=== PATIENT | male | born 1990 | race Caucasian/White ===

== ENCOUNTER 2016-07-12 00:13 | Emergency (ER) | payer OTHER ==
[~2016-07-12] VITALS: Ht 167.6 cm; Wt 72.0 kg
[~2016-07-12 00:13] MED LIST: ALBU6.7H IH; CLIN-77 PO; DIPH25 PO; HYDR-3965 PO; MO4B PO; PRED20 PO; RANI150T7 PO
[2016-07-12] MEDS ORDERED: BACITRACIN 0.9 GM PACKET OINTMENT TP ONE (01:15)
[2016-07-12] MEDS ORDERED: LIDOCAINE HCL BUFFERED 1% 20 ML VIAL INJ ONE (01:15)
[2016-07-12 01:52] VITALS: BP 131/77
== END 2016-07-12 01:53 | disposition home or self-care (01) ==
LOC: EMS 00:13
DX: S61.011A Laceration without foreign body of right thumb without damage to nail, initial encounter (principal); J45.909 Unspecified asthma, uncomplicated; W45.8XXA Other foreign body or object entering through skin, initial encounter; Y93.89 Activity, other specified; Y92.89 Other specified places as the place of occurrence of the external cause; Y99.8 Other external cause status
CPT/HCPCS: 12001; 99283; J3490

== ENCOUNTER 2016-12-27 21:45 | Emergency (ER) | payer OTHER ==
[~2016-12-27] VITALS: Ht 162.6 cm; Wt 74.5 kg
[2016-12-27 22:54] VITALS: BP 128/70
== END 2016-12-27 23:02 | disposition home or self-care (01) ==
LOC: EMS 21:46
DX: K52.9 Noninfective gastroenteritis and colitis, unspecified (principal); J45.909 Unspecified asthma, uncomplicated
CPT/HCPCS: 99281

== ENCOUNTER 2024-02-02 18:29 | Emergency (ER) | payer OTHER ==
[~2024-02-02] VITALS: Ht 175.3 cm; Wt 72.7 kg
[2024-02-02 18:38] VITALS: BP 119/86; PULSE 84; RESP 18; TEMP 98.8; O2SAT 99
[2024-02-02] MEDS ORDERED: ACETAMINOPHEN 500 MG TABLET PO ONE (19:00)
== END 2024-02-02 19:30 | disposition left against medical advice (07) ==
LOC: EMS 18:29
DX: R10.30 Lower abdominal pain, unspecified (principal); R30.0 Dysuria; Z53.21 Procedure and treatment not carried out due to patient leaving prior to being seen by health care provider
CPT/HCPCS: Z7610